=== PATIENT | male | born 1965 | race Caucasian/White ===

== ENCOUNTER 2023-03-30 10:31 | Emergency (ER) | payer MEDICARE, SELFPAY ==
[2023-03-30 10:35] VITALS: BP 166/113; PULSE 88; RESP 18; TEMP 36.6; O2SAT 95; BMI 24.4
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
[2023-03-30] MEDS: ADACEL DIPH,PERTUSS(ACELL),TET VAC/PF 0.5 ML ADULT SYRINGE IM (11:25)
[2023-03-30 11:30] VITALS: BP 136/66; PULSE 98; RESP 16; TEMP 36.8; O2SAT 99
== END 2023-03-30 11:31 | disposition home or self-care (01) ==
PROVIDERS: Emergency Provider Emergency Medicine Emergency Medical Services; PCP Internal Medicine
DX: S81.812A Laceration without foreign body, left lower leg, initial encounter (principal); Z23 Encounter for immunization; W45.8XXA Other foreign body or object entering through skin, initial encounter
CPT/HCPCS: 90471; 90715; 99284

== ENCOUNTER 2023-05-09 14:27 | Outpatient (OUT) | payer MEDICARE, SELFPAY | END 2023-05-09 14:28 | disposition home or self-care (01) | LOC: WC 14:27 | PROVIDERS: PCP Internal Medicine; Visit Provider Physician Assistant | DX: L97.828 Non-pressure chronic ulcer of other part of left lower leg with other specified severity (principal) | CPT/HCPCS: 11043; G0463 ==

== ENCOUNTER 2023-05-13 13:27 | Outpatient (OUT) | payer MEDICARE, SELFPAY ==
--- NOTE | 2023-05-13 13:35 | MR_ITS ---
The [address] [address] Patient Name: TOMMY DAUGHERTY MRN: [id number] date: 1965 Sex: M Assigned Patient Location: MRI Current Patient Location: Accession/Order Number: [id number] Exam Date: 05/13/2023 13:45 Report Date: 05/15/2023 17:54 At the request of: LINH POSEY Procedure: MR lower leg LT wo con EXAM: MR lower leg LT wo con HISTORY: Leg pain COMPARISON: None. TECHNIQUE: Axial, sagittal and coronal MRI sequences were performed FINDINGS: Soft tissue marker has been placed. Nondescript extrafascial superficial cutaneous soft tissue edema beginning within the mid aspect of the lower leg and extending distally. No soft tissue collection, mass, cyst, hematoma or loculation. No visualized thickening or edema of the fascia. The visualized muscles exhibit no discrete edema, hematoma, mass or cyst. The osseous structures exhibit no fracture, dislocation, subluxation or osseous lesion. MR/MR lower leg LT wo con IMPRESSION: Nondescript soft tissue edema. Electronically authenticated by: JORGE LÓPEZ Date: 05/15/2023 17:54
--- NOTE | 2023-05-13 13:38 | US_ITS ---
The [address] [address] Patient Name: TOMMY DAUGHERTY MRN: [id number] date: 1965 Sex: M Assigned Patient Location: MRI Current Patient Location: MRI Accession/Order Number: [id number] Exam Date: 05/13/2023 13:39 Report Date: 05/16/2023 06:23 At the request of: LINH POSEY Procedure: US venous doppler LE LT EXAMINATION: US venous doppler LE LT HISTORY: Left Lower Leg Abscess COMPARISON: No relevant comparison available. FINDINGS: REGION: Left lower extremity THROMBI: None. COMPRESSIBILITY: Normal compressibility. FLOW: Normal waveform and antegrade flow between 5 and 20 cm/s. OTHER: None. US/US venous doppler LE LT IMPRESSION: 1. No deep vein thrombus within the left lower extremity. Electronically authenticated by: KIRSTY CLINTON Date: 05/16/2023 06:23
[2023-05-13 15:01] LABS: Basophils Percent Auto 0.3 % (0.2-2.0); Eosinophils Percent Auto 0.6 % (0.9-7.0); Hematocrit 47.4 % (42.0-54.0); Hemoglobin 15.8 g/dL (14.0-18.0); Immature Granulocytes Abs Auto 0.01 10^3/uL (0.00-0.03); Immature Granulocytes Pct Auto 0.1 % (0.0-0.5); Lymphocytes Absolute Auto 1.4 10^3/uL (1.2-3.8); Lymphocytes Percent Auto 19.3 % (20.5-60.0); Mean Corpuscular HGB Conc 33.3 g/dL (29.9-35.2); Mean Corpuscular Hemoglobin 32.9 pg (25.9-34.0); Mean Corpuscular Volume 98.8 fL (80.0-94.0); Mean Platelet Volume 9.7 fL (9.5-13.5); Monocytes Absolute Auto 0.5 10^3/uL (0.3-0.8); Monocytes Percent Auto 6.4 % (1.7-12.0); Neutrophils Absolute Auto 5.1 10^3/uL (1.4-6.5); Neutrophils Percent Auto 73.3 % (43.0-75.0); Platelet Count 254 10^3/uL (150-450); Red Cell Distribution Width 13.8 % (11.0-15.0)
[2023-05-13 15:25] LABS: Erythrocyte Sedimentation Rate 34 mm/hr (<=20)
[2023-05-14 13:32] LABS: Anion Gap 16.5; BUN Creatinine Ratio 8.7; Carbon Dioxide 25.8 mmol/L (21.0-32.0); Chloride 98 mmol/L (98-107); Estimated GFR (African America >60 (>=60); Estimated GFR (Non-African Ame >60 (>=60); Glucose 75 mg/dL (74-106); Potassium 4.3 mmol/L (3.5-5.1); Sodium 136 mmol/L (136-145)
[2023-05-14 14:34] LABS: C Reactive Protein <0.2 mg/dL (<=1.0)
== END 2023-05-13 13:28 | disposition home or self-care (01) ==
LOC: MRI 13:28
PROVIDERS: PCP Internal Medicine; Visit Provider Physician Assistant
DX: L02.416 Cutaneous abscess of left lower limb (principal)
CPT/HCPCS: 36415; 73718; 80048; 85025; 85652; 86140; 93971

== ENCOUNTER 2023-05-24 11:31 | Outpatient (OUT) | payer MEDICARE, SELFPAY | END 2023-05-24 11:32 | disposition home or self-care (01) | LOC: WC 11:31 | PROVIDERS: PCP Internal Medicine; Visit Provider Podiatrist Foot & Ankle Surgery | DX: L97.828 Non-pressure chronic ulcer of other part of left lower leg with other specified severity (principal) | CPT/HCPCS: 11042 ==

== ENCOUNTER 2023-06-06 13:28 | Outpatient (OUT) | payer MEDICARE, SELFPAY | END 2023-06-06 13:29 | disposition home or self-care (01) | LOC: WC 13:28 | PROVIDERS: PCP Internal Medicine; Visit Provider Physician Assistant | DX: L97.828 Non-pressure chronic ulcer of other part of left lower leg with other specified severity (principal) | CPT/HCPCS: 11042 ==

== ENCOUNTER 2023-06-27 15:34 | Outpatient (OUT) | payer MEDICARE, SELFPAY | END 2023-06-27 15:35 | disposition home or self-care (01) | LOC: WC 15:34 | PROVIDERS: PCP Internal Medicine; Visit Provider Physician Assistant | DX: L97.828 Non-pressure chronic ulcer of other part of left lower leg with other specified severity (principal) | CPT/HCPCS: A6213; G0463 ==

== ENCOUNTER 2023-07-11 13:34 | Outpatient (OUT) | payer MEDICARE, SELFPAY ==
--- NOTE | 2023-07-11 14:48 | CA_ITS ---
The [facility] Test Date: 2023-07-11 Pat Name: TOMMY DAUGHERTY Department: Room: - Gender: Male Pool Coordinator: Elayne Mai : 1965 Requested By: [id number] Order Number: [id number] Reading MD: DAGOBERTO TERRY Interpretive Statements Monophasic doppler waveforms of the LLE. PVR waveforms with delayed upstroke, blunted amplitude and loss of dicrotic notch of the LLE. Right: - no signficant pressure gradient between cuffs - normal MELISSA - normal TBI Left: - signficant pressure gradient between the thigh and calf cuff - abnormal MELISSA - abnormal TBI Impression: - normal arterial evaluation of the right lower extremity without hemodynamic impairment of the right lower extremity at rest (right MELISSA 0.98) - significant left femoropopliteal arterial disease with moderate hemodynamic impairment of the left lower extremity at rest (left MELISSA 0.64) Electronically Signed On 07-11-2023 20:33:00 EDT by DAGOBERTO TERRY
== END 2023-07-11 13:35 | disposition home or self-care (01) ==
LOC: CARD 13:35
PROVIDERS: PCP Internal Medicine; Visit Provider Physician Assistant
DX: L97.229 Non-pressure chronic ulcer of left calf with unspecified severity (principal); R09.89 Other specified symptoms and signs involving the circulatory and respiratory systems
CPT/HCPCS: 93923

== ENCOUNTER 2023-07-12 14:03 | Outpatient (OUT) | payer MEDICARE, SELFPAY | END 2023-07-12 14:04 | disposition home or self-care (01) | LOC: WC 14:03 | PROVIDERS: PCP Internal Medicine; Visit Provider Podiatrist Foot & Ankle Surgery | DX: L97.828 Non-pressure chronic ulcer of other part of left lower leg with other specified severity (principal) | CPT/HCPCS: 11042 ==

== ENCOUNTER 2023-08-01 14:07 | Outpatient (OUT) | payer MEDICARE, SELFPAY | END 2023-08-01 14:08 | disposition home or self-care (01) | LOC: WC 14:07 | PROVIDERS: PCP Internal Medicine; Visit Provider Physician Assistant | DX: L97.828 Non-pressure chronic ulcer of other part of left lower leg with other specified severity (principal) | CPT/HCPCS: 11042; A6213 ==

== ENCOUNTER 2023-08-23 14:02 | Outpatient (OUT) | payer MEDICARE, SELFPAY | END 2023-08-23 14:03 | disposition home or self-care (01) | LOC: WC 14:02 | PROVIDERS: PCP Internal Medicine; Visit Provider Podiatrist Foot & Ankle Surgery | DX: L97.828 Non-pressure chronic ulcer of other part of left lower leg with other specified severity (principal) | CPT/HCPCS: 11042 ==

== ENCOUNTER 2023-09-13 14:02 | Outpatient (OUT) | payer MEDICARE, SELFPAY | END 2023-09-13 14:03 | disposition home or self-care (01) | LOC: WC 14:02 | PROVIDERS: PCP Internal Medicine; Visit Provider Podiatrist Foot & Ankle Surgery | DX: L97.828 Non-pressure chronic ulcer of other part of left lower leg with other specified severity (principal) | CPT/HCPCS: G0463 ==

== ENCOUNTER 2023-09-23 13:54 | Outpatient (OUT) | payer MEDICARE, SELFPAY ==
--- OUTSIDE RECORDS SUMMARY | 2023-09-23 13:57 | XMS_ITS | CCD ---
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 information from multiple sources, and as a consequence, information in this document may materially change the coding, format and clinical context of patient data. In addition, data may be omitted in some cases. CLINICAL DECISIONS SHOULD BE BASED ON THE PRIMARY CLINICAL RECORDS. [facility] [employer] provides no warranty or guarantee of the accuracy or completeness of information in this document.
--- NOTE | 2023-09-23 14:01 | US_ITS ---
[address] [id number] Patient Name: TOMMY DAUGHERTY MRN: [id number] date: 1965 Sex: M Assigned Patient Location: Current Patient Location: Accession/Order Number: [id number] Exam Date: 09/23/2023 14:06 Report Date: 09/24/2023 01:26 At the request of: FLORESITA HICKEY Procedure: US carotid duplex BI EXAMINATION: US carotid duplex BI HISTORY: Bilateral Artery Stenosis I65.23 COMPARISON: No relevant comparison available. TECHNIQUE: Duplex Doppler ultrasound analysis of carotid and vertebral arteries. . Bilateral carotid arterial duplex examination was performed using B-mode, color flow and spectral analysis. Carotid stenosis is reported according to validated velocity parameters, similar to NASCET criteria. FINDINGS: RIGHT CAROTID ARTERY: Mild atherosclerotic plaque without significant stenosis. RIGHT VERTEBRAL: Antegrade flow. Subclavian: PSV: 82.0 cm/s EDV: 9.0 cm/s CCA: Prox: PSV: 82.0 cm/s EDV: 18.1 cm/s Mid: PSV: 85.9 cm/s EDV: 19.4 cm/s Distal: PSV: 41.8 cm/s EDV: 11.3 cm/s BULB: PSV: 28.4 cm/s EDV: 9.8 cm/s ICA: Prox: PSV: 47.0 cm/s EDV: 16.5 cm/s Mid: PSV: 71.0 cm/s EDV: 27.0 cm/s Distal: PSV: 67.2 cm/s EDV: 27.0 cm/s ECA: PSV: 114.1 cm/s EDV: 19.5 cm/s VERTEBRAL: PSV: 67.2 cm/s EDV: 21.9 cm/s ICA/CCA ratio: PSV: 0.8 EDV: 1.4 LEFT CAROTID ARTERY: Mild atherosclerotic plaque without significant stenosis. LEFT VERTEBRAL: Antegrade flow. Subclavian: PSV: 106.5 cm/s EDV: 20.8 cm/s CCA: Prox: PSV: 98.3 cm/s EDV: 32.1 cm/s Mid: PSV: 85.4 cm/s EDV: 27.3 cm/s Distal: PSV: 43.5 cm/s EDV: 18.2 cm/s BULB: PSV: 45.3 cm/s EDV: 13.9 cm/s ICA: Prox: PSV: 87.1 cm/s EDV: 40.2 cm/s Mid: PSV: 101.6 cm/s EDV: 41.8 cm/s Distal: PSV: 112.9 cm/s EDV: 41.8 cm/s ECA: PSV: 106.4 cm/s EDV: 20.8 cm/s VERTEBRAL: PSV: 49.6 cm/s EDV: 16.5 cm/s ICA/CCA ratio: PSV: 1.3 EDV: 1.5 US/US carotid duplex BI IMPRESSION: 0-49% flow stenosis within the right left carotid arteries. Electronically authenticated by: KIRSTY CLINTON Date: 09/24/2023 01:26
== END 2023-09-23 13:55 | disposition home or self-care (01) ==
LOC: US 13:54
PROVIDERS: PCP Internal Medicine
DX: I65.23 Occlusion and stenosis of bilateral carotid arteries (principal)
CPT/HCPCS: 93880

== ENCOUNTER 2023-10-10 15:30 | Outpatient (OUT) | payer MEDICARE, SELFPAY ==
--- OUTSIDE RECORDS SUMMARY | 2023-10-10 15:31 | XMS_ITS | CCD ---
Author Name Unknown Address [address] [place] [address] Organization [facility] Care Team Providers Care Medical Assistant Name Role Phone Andre Zuniga Attending Unavailable [...] Consulting Unavailable FAWWAD, GONZALEZ H Consulting Unavailable No Pcp, No Pcp Primary Care Provider Unavailabl e Allergies Allergy Classification Reported Allergen(s) Allergy Type Date of Onset Reaction(s) Facility (1 source) Amoxicillin; Translations: [amoxicillin] Drug Allergy [facility] Repository (1 source) methylPREDNISolone Drug Allergy [facility] Repository Medications Current Medications Medication Drug Class(es) Dates Sig (Normalized) Sig (Original) [id number] 200 actuat albuterol 0.09 mg/actuat metered dose inhaler (1 source) beta2-Adrenergic Agonist take 2 puff(s) by inhalation every six hours as needed for wheezing albuterol (PROVENTIL HFA;VENTOLIN HFA) 90 mcg/actuation inhaler Inhale 2 puffs every 6 (six) hours as needed for wheezing. 0 Active ALPRAZolam 1 mg oral tablet (1 source) Benzodiazepine ALPRAZolam (XANA X) 1 mg tablet Take 1 tablet (1 mg total) by mouth in the morning and 1 tablet (1 mg total) at noon and 1 tablet (1 mg total) in the evening and 1 tablet (1 mg total) before bedtime. 0 Active baclofen 20 mg oral tablet (1 source) gamma-Aminobutyric Acid-ergic Agonist take 1 tablet by mouth three times daily baclofen (LIORESAL) 20 mg tablet Take 1 tablet (20 mg total) by mouth 3 (three) times a day. 0 Active diclofenac sodium 0.01 mg/mg topical gel (1 source) Nonsteroidal Anti-inflammatory Drug diclofenac sodium (VOLTAREN) 1 % gel Apply 2 g topically in the morning and 2 g at noon and 2 g in the evening and 2 g before bedtime. 0 Active levocetirizine dihydrochloride 5 mg oral tablet (1 source) Histamine-1 Receptor Antagonist take 1 tablet by mouth once daily in the evening levocetirizine (XYZAL) 5 mg tablet Take 1 tablet (5 mg total) by mouth every evening. 0 Active QUEtiapine 100 mg oral tablet (1 source) Atypical Antipsychotic take 1 tablet by mouth once daily QUEtiapine (SEROquel) 100 mg tablet Take 1 tablet (100 mg total) by mouth nightly. 0 Active Problems Active Problems Problem Classification Problem Date Documented Da te Episodic/Chronic Anxiety disorders (6 sources) Anxiety disorder, unspecified; Translations: [Generalized anxiety disorder] Onset: 03-02-2022 Chronic Attention-deficit, conduct, and disruptive behavior disorders (2 sources) Attention-deficit hyperactivity disorder, combined type; Translations: [Attention-deficit hyperactivity disorder. combined type] Onset: 04-29-2022 Chronic Chronic obstructive pulmonary disease and bronchiectasis (1 source) Chronic obstructive pulmonary disease, unspecified; Translations: [COPD UNSPECIFIED] Onset: 11-15-2022 Chronic Chronic ulcer of skin (1 source) Ischemic ulcer; Translations: [Non-pressure chronic ulcer of skin of other sites with fat layer exposed] Onset: 09-22-2023 09-22-2023 Chronic Osteoarthritis (1 source) Unilateral primary osteoarthritis, right hip; Translations: [UNI PRIM OSTEOARTHRITIS RT HIP] Onset: 11-15-2022 Chronic Other non-traumatic joint disorders (1 source) Pain in right hip; Translations: [PAIN IN RIGHT HIP] Onset: 11-15-2022 Episodic Peripheral and visceral atherosclerosis (1 source) Peripheral vascular disease, unspecified; Translations: [Peripheral vascular disease, unspecified] Onset: 09-22-2023 09-22-2023 Chronic Spondylosis; intervertebral disc disorders; other back [...] by: KIRSTY CLINTON Date: 2023-02-04 06:36 Normal [facility]-04-20 23 [facility] EXAMINATION: [facility] HISTORY: Neck pain , chronic which [...] KIRSTY CLINTON Date: 2023-02-03 15:09 Normal [facility] Family Medicine Office/Clini c Noteon 12-22-2022 [...] Alberta Sharma to record this visit. MAYUR health information specialist and provider reviewed before signing. MAYUR: [...] fexofenadine 18 (more content not included)... Normal [facility] Comment on above: Result Comment: Elec tronically Signed By: Andre Zuniga MD\.br\Date and Time Signed: 12/22/22 11:14 EDT\.br\Electronically Co-Signed By: Monse Green\.br\Date and Time Co-Signed: 12/21/22 19:48 EDT Ambulatory Visit Summaryon 0 12-21-2022 Ambulatory Visit Summary CHAPARRO DAUGHERTY Rola :1965 Visit Date:12/21/2022 Ambulatory Visit Instructions Your Diagnosis BMI 27.0-27.9,adult Over weight Your Care Team Attending Physician - Andre Zuniga MD Primary Care Physician - Andre [...] EDT With: Efrain GARIBAY, Andre Macedo Where: [facility] Normal [facility] XR CSPINE 2_3 VIEWSon 2022 XR CSPINE [...] by: JORGE COCHRAN Date: 2022-11-11 07:46 Normal [facility] XR LSPINE 2_3 VIEWSon 2022 XR LSPINE [...] JORGE COCHRAN Date: 2022-11-11 07:43 Normal [facility] HEMOGLOBINon 11-10-2022 Hemoglobin (Bld) [Mass/Vol] 16.0 g/dL Normal 14.0-18.0 [facility] Comment on above: Performed By: #### H GB #### [facility] [address] [place] [address] Dr. Rc Knutson CBC AUTO DIFFon 03-02-2022 BASO # 0.1 103/ul Normal 0.0-0.1 [facility] Comment on above: Performed By: #### C BC #### [facility] [address] [place] [address] Dr. Rc Knutson Basophils/100 WBC (Bld) 0.6 % Normal 0.2-2.0 [facility] Comment on above: Performed By: #### C BC #### [facility] [address] [place] [address] Dr. Rc Knutson EO # 0.1 103/ul Normal 0.0-0.7 [facility] Comment on above: Performed By: #### C BC #### [facility] [address] [place] [address] Dr. Rc Knutson Eosinophils/100 WBC (Bld) 0.9 % Normal 0.9-7.0 [facility] Comment on above: Performed By: #### C BC #### [facility] [address] [place] [address] Dr. Rc Knutson Erythrocyte distribution width (RBC) [Ratio] 13.3 % Normal 11.0-15.0 [facility] Comment on above: Performed By: #### C BC #### [facility] [address] [place] [address] Dr. Rc Knutson Hematocrit (Bld) [Volume fraction] 50.8 % Normal 42.0-54.0 [facility] Comment on above: Performed By: #### C BC #### [facility] [address] [place] [address] Dr. Rc Knutson Hemoglobin (Bld) [Mass/Vol] 16.5 g/dL Normal 14.0-18.0 [facility] Comment on above: Performed By: #### C BC #### [facility] [address] [place] [address] Dr. Rc Knutson IG # 0.03 10e3/ul Normal 0.00-0.03 [facility] Comment on above: Performed By: #### C BC #### [facility] [address] [place] [address] Dr. Rc Knutson IG % 0.3 % Normal 0.0-0.5 [facility] Comment on above: Performed By: #### C BC #### [facility] [address] [place] [address] Dr. Rc Knutson LYMPH # 1.6 103/ul Normal 1.2-3.8 [facility] Comment on above: Performed By: #### C BC #### [facility] [address] [address] [address] Rc Knutson Lymphocytes/100 WBC (Bld) 16.6 % Critically low 20.5-60.0 [facility] Comment on above: Performed By: #### C BC #### [facility] [address] [address] [address] Rc Knutson MANUAL DIFF REQ NO Normal [facility] Comment on above: Performed By: #### C BC #### [facility] [address] [place] [address] Dr. Rc Knutson MCH (RBC) [Entitic mass] 32.3 pg Normal 25.9-34.0 [facility] Comment on above: Performed By: #### C BC #### [facility] [address] [place] [address] Dr. Rc Knutson MCHC (RBC) [Mass/Vol] 32.5 g/dL Normal 29.9-35.2 [facility] Comment on above: Performed By: #### C BC #### [facility] [address] [place] [address] Dr. Rc Knutson MCV (RBC) [Entitic vol] 99.4 fL Critically high 80.0-94.0 [facility] Comment on above: Performed By: #### C BC #### [facility] [address] [place] [address] Dr. Rc Knutson MONO # 0.7 103/ul Normal 0.3-0.8 [facility] Comment on above: Performed By: #### C BC #### [facility] [address] [place] [address] Dr. Rc Knutson Monocytes/100 WBC (Bld) 6.9 % Normal 1.7-12.0 [facility] Comment on above: Performed By: #### C BC #### [facility] [address] [place] [address] Dr. Rc Knutson NEUT # 7.2 103/ul Critically high 1.4-6.5 [facility] Comment on above: Performed By: #### C BC #### [facility] [address] [address] [address] Rc Knutson Neutrophils/100 WBC (Bld) 74.7 % Normal 43.0-75.0 [facility] Comment on above: Performed By: #### C BC #### [facility] [address] [address] [address] Rc Knutson Platelet mean volume (Bld) [Entitic vol] 9.9 fL Normal 9.5-13.5 [facility] Comment on above: Performed By: #### C BC #### [facility] [address] [place] [address] Dr. Rc Knutson PLT 262 103/ul Normal 150-450 [facility] Comment on above: Performed By: #### C BC #### [facility] [address] [place] [address] Dr. Rc Knutson RBC 5.11 106/ul Normal 4.70-6.10 [facility] Comment on above: Performed By: #### C BC #### [facility] [address] [place] [address] Dr. Rc Knutson WBC 9.7 103/ul Normal 4.0-11.0 [facility] Comment on above: Performed By: #### C BC #### [facility] [address] [place] [address] Dr. Rc Knutson PROF 14(COMP METB)on 022 Albumin [Mass/Vol] 4.0 g/dL Normal 3.4-5.0 [facility] Comment on above: Performed By: #### C MP, TSH #### [facility] [address] [place] [address] Dr. Rc Knutson Albumin/Globulin [Mass ratio] 1.3 {ratio} Normal [facility] Comment on above: Performed By: #### C MP, TSH #### [facility] [address] [place] [address] Dr. Rc Knutson ALP [Catalytic activity/Vol] 101 U/L Normal 46-116 [facility] Comment on above: Performed By: #### C MP, TSH #### [facility] [address] [address] [address] Rc Knutson ALT [Catalytic activity/Vol] 33 U/L Normal 16-63 [facility] Comment on above: Performed By: #### C MP, TSH #### [facility] [address] [place] [address] Dr. Rc Knutson Anion gap [Moles/Vol] 10.4 mmol/L Normal [facility] Comment on above: Performed By: #### C MP, TSH #### [facility] [address] [address] [address] Rc Knutson AST [Catalytic activity/Vol] 22 U/L Normal 15-37 [facility] Comment on above: Performed By: #### C MP, TSH #### [facility] [address] [place] [address] Dr. Rc Knutson Bilirubin [Mass/Vol] 0.6 mg/dL Normal 0.2-1.0 [facility] Comment on above: Performed By: #### C MP, TSH #### [facility] [address] [place] [address] Dr. Rc Knutson Calcium [Mass/Vol] 8.8 mg/dL Normal 8.5-10.[address] [facility] Comment on above: Performed By: #### C MP, TSH #### [facility] [address] [place] [address] Dr. Rc Knutson Chloride [Moles/Vol] 105 mmol/L Normal 98-107 [facility] Comment on above: Performed By: #### C MP, TSH #### [facility] [address] [place] [address] Dr. Rc Knutson CO2 [Moles/Vol] 33.0 mmol/L Critically high 21.0-32.0 [facility] Comment on above: Performed By: #### C MP, TSH #### [facility] [address] [place] [address] Dr. Rc Knutson Creatinine [Mass/Vol] 0.96 mg/dL Normal 0.70-1.30 [facility] Comment on above: Performed By: #### C MP, TSH #### [facility] [address] [place] [address] Dr. Rc Knutson EGFR-AF HUNGARIAN >60 Normal >=60 [facility] Comment on above: Performed By: #### C MP, TSH #### [facility] [address] [place] [address] Dr. Rc Knutson EGFR-NON AF HUNGARIAN >60 Normal >=60 [facility] Comment on above: Performed By: #### C MP, TSH #### [facility] [address] [address] [address] Rc Knutson Globulin (S) [Mass/Vol] 3.2 g/dL Normal [facility] Comment on above: Performed By: #### C MP, TSH #### [facility] [address] [place] [address] Dr. Rc Knutson Glucose [Mass/Vol] 106 mg/dL Normal 74-[address] [facility] Comment on above: Performed By: #### C MP, TSH #### [facility] [address] [address] [address] Rc Knutson Potassium [Moles/Vol] 4.4 mmol/L Normal 3.5-5.1 [facility] Comment on above: Performed By: #### C MP, TSH #### [facility] [address] [place] [address] Dr. Rc Knutson Protein [Mass/Vol] 7.2 g/dL Normal 6.4-8.[address] [facility] Comment on above: Performed By: #### C MP, TSH #### [facility] [address] [place] [address] Dr. Rc Knutson Sodium [Moles/Vol] 144 mmol/L Normal 136-[address] [facility] Comment on above: Performed By: #### C MP, TSH #### [facility] [address] [place] [address] Dr. Rc Knutson Urea nitrogen [Mass/Vol] 13.0 mg/dL Normal 7.0-18.0 [facility] Comment on above: Performed By: #### C MP, TSH #### [facility] [address] [place] [address] Dr. Rc Knutson Urea nitrogen/Creatinin e [Mass ratio] 13.5 mg/mg Normal [facility] Comment on above: Performed By: #### C MP, TSH #### [facility] [address] [address] [address] Rc Knutson TSHon 03-02-2022 TSH 0.383 uIU/mL Normal 0.358-3.740 [facility] Comment on above: Performed By: #### C MP, TSH #### [facility] [address] [address] [address] Rc Knutson TSH RANGE SEE BELOW Normal [facility] Comment on above: Result Comment: <0.3 4 UIU/ml HYPERTHYROID 0.34-5.60 UIU/ml EUTHYROID >5.60 UIU/ml HYPOTHYROID Performed By: #### C MP, TSH #### [facility] [address] [address] [address] Rc Knutson Encounters Encounter Date Encounter Type Care Provider Facility Start: 10-04-2023 Telephone encounter Emy [facility] Start: 02-03-2023 End: 02-04-2023 ambulatory SHAIKH Patt CHOUDHURY Facility:[facility] Start: 12-21-2022 End: 12-22-2022 ambulatory Andre Zuniga Facility:[facility] Start: 11-10-2022 End: 11-11-2022 ambulatory SHAIKH Patt CHOUDHURY Facility:[facility] Start: 11-01-2022 ambulatory Andre Zuniga Facility:[facility] Start: 04-29-2022 End: 11-13-2022 ambulatory [facility] Start: 03-02-2022 End: 03-03-2022 ambulatory SHAIKH Patt CHOUDHURY Facility:[facility] Plan of Treatment Date Care Activity Detail Author Start: 09-08-2024 Adult BMI Screening Adult BMI Screen ing [facility] Start: 09-08-2024 Tobacco Screening Tobacco Screening [facility] Start: 10-20-2023 End: 10-20-2023 Patient encounter procedure 10/20/2023 10:10 AM EST Office Visit [facility] [address] [place], [place] [address], [place] [address] Yvan Johnson MD [address], [address] [place] [address] [facility] Start: 10-06-2023 Subsequent hospital visit by physician 10/06/2023 Hospital Encounter [facility] - Cardiac Cath [address] [place] [id number] Yvan Johnson MD [address], [facility] [address] [place] [address] Ischemic ulcer with fat layer exposed ([facility]); PAD (peripheral artery disease) ([facility]) [facility] Comment on above: Ischemic ulcer with fat layer exposed ([facility]); PAD (peripheral artery disease) ([facility]) Start: 05-27-2023 COVID-19 Vaccine ( season) COVID-19 Vaccine ( season) [facility] Start: 05-27-2023 Influenza vaccination Influenza Vacc ine [facility] Start: 2014 Administration of varicella zoster vaccine Zoster (Shingles) Vaccine (1 of 2) [facility] Start: 1983 DTaP,Tdap and Td Vac cines (1 - Tdap) DTaP,Tdap and Td Vaccines (1 - Tdap) [facility] Start: 1976 Depression Screening Depression Scre ening [facility] Start: 1964 Tobacco Counseling Tobacco Counselin g [facility] Payers Date Payer Category Payer Medicare AETNA MEDICARE A ETNA MEDICARE PLAN (PPO) [id number] 2020-Present [phone] [address] [place] [address] [id number] 2017 Medicaid MEDICAID [place] [facility] -[place] ONLY [id number] 2017-Present [phone] [address] [place] [address] [id number] 1965 Unknown [id number] 1965 Unknown [id number] 1965 Unknown [id number] 1965 Unknown [id number] 1960 Medicare [id number] Social History Date Type Detail Facility [facility]: [facility] History of tobacco use Cigarette Smoker P [facility] Start: 11-06-2020 End: 09-08-2023 Cigarettes smoked current (pack per day) - Reported 1.5 [facility] Start: 09-08-2023 Tobacco use and exposure Smokeless tobacco non-user [facility] Start: 09-08-2023 Alcohol intake Current drinke r of alcohol (finding) [facility] Start: 11-06-2020 End: 09-08-2023 Tobacco use panel [facility] Housing Instability Unknown [facility] Start: 10-13-2021 Alcohol Comment occ [facility] Start: 1965 Sex Assigned At Male P [facility] Start: 10-16-2021 Gender identity Identifies as male gender (finding) [facility] Start: 10-16-2021 Sexual orientation Heterosexual (moises moran) [facility] Note 10-04-2023 Telephone Encounter - Emy Shaffer - 10/04/2023 1:17 PM EST Note Date & Type Note Facility 10-04-2023 Miscellaneous Notes Formattin g of this note might be different from the original. Patient has cancelled his Angiogram x2-I called and spoke with Marilyn the Wound Care Nurse at Wound center in [place] to let her know. Patient will call me when he has a ride to reschedule. [facility] encounter Note 10-04-2023 Telephone Encounter - Emy Millerford - 10/04/2023 1:17 PM EST Note Date & Type Note Facility 10-04-2023 Telephone encount er Note Patient has cancelled his Angiogram x2-I called and spoke with Marilyn the Wound Care Nurse at Wound center in [place] to let her know. Patient will call me when he has a ride to reschedule. [facility] 11-11-2022 Note Date & Type [...] by: JORGE COCHRAN Date: 2022-11-11 07:48 [facility] Instructions Note Date & Type Note Facility Instructions Not on filedocumented in this en counter [facility] Summary Purpose Family History No Family History Records FoundNo Family History Records FoundNo Family History Records Found Advance Directives No Advanced Directives Records FoundNo Advanced Directives Records FoundNo Advanced Directives Records Found Additional Source Comments (unrecognized sect ion and content) No Status Records FoundNo Status Records FoundNo Status Records Found INFORMATION SOURCE (unrecogn ized section and content) DATE CREATED AUTHOR 11/14/2022 [facility] DATE CREATED AUTHOR AUTHOR'S ORGANIZ ATION 12/22/2022 [facility] DATE CREATED AUTHOR AUTHOR'S ORGANIZ ATION 02/07/2023 [facility] Care Teams (unrecognized sec tion and content) Medical Assistant Relationship Specialty Start Date End Date No Pcp, [place] [address] PCP - General Family Medicine 08/04/21 FOR RECORDS PERTAINING TO PATIENTS WHO ARE [...] BE BASED ON THE PRIMARY CLINICAL RECORDS. [facility] [employer] [facility]. provides no warranty or guarantee of the accuracy or completeness of information in this document.
== END 2023-10-10 15:31 | disposition home or self-care (01) ==
LOC: WC 15:30
PROVIDERS: PCP Internal Medicine; Visit Provider Physician Assistant
DX: L97.828 Non-pressure chronic ulcer of other part of left lower leg with other specified severity (principal)
CPT/HCPCS: A6213; G0463

== ENCOUNTER 2023-11-14 12:43 | Outpatient (OUT) | payer MEDICARE, SELFPAY ==
--- OUTSIDE RECORDS SUMMARY | 2023-11-14 13:02 | XMS_ITS | CCD ---
Author Name Unknown Address [address] [place] [address] Organization [facility] Care Team Providers Care Strategic Client Executive Name Role Phone Andre Zuniga Attending Unavailable [...] No Pcp Primary Care Provider Unavailabl e FAWWAD, GONZALEZ Attending Unavailable FLORESITA HICKEY Referring Unavailable NO PCP, NO PCP Primary Care Unavailable Shaikh Choudhury MD Primary Care Provider BECKI MCCOY Attending Unavailable NO PCP, NO PCP Primary Care Unavailable Allergies Allergy Classification Reported Allergen(s) Allergy Type Date of Onset Reaction(s) Facility (5 sources) Amoxicillin; Translations: [amoxicillin] Drug Allergy 10-11-19 Other (See Comments), Unknown [facility] Repository (1 source) methylPREDNISolone Drug Allergy [facility] Repository (4 sources) methylPREDNISolone; Translations: [METHYLPREDNISOLONE] Drug Allergy 09-29-19 [facility] Medications Current Medications Medication Drug Class(es) Dates Sig (Normalized) Sig (Original) acetaminophen 325 mg / oxyCODONE hydrochloride 5 mg oral tablet (3 sources) Opioid Agonist Start: 10-11-2023 End: 12-10-2023 take 1 tablet by mouth once oxyCODONE-acetamin ophen (Percocet) 5-325 MG tablet Indications: Chronic neck and back pain Take 1 tablet by mouth every 12 (twelve) hours if needed for severe pain 60 tablet 0 11/10/2023 12/10/2023 Active [id number] 200 actuat albuterol 0.09 mg/actuat metered dose inhaler (5 sources) beta2-Adrenergic Agonist Start: 10-21-2023 End: 01-19-2024 take 2 puff(s) by inhalation every six hours for wheezing albuterol HFA 90 mcg/act inhaler Indications: Chronic obstructive pulmonary disease with acute exacerbation (CMS/HCC) Inhale 2 puffs every 6 (six) hours if needed for shortness of breath or wheezing 18 g 1 10/21/2023 01/19/2024 Active take 2 puff(s) by in halation every six hours as needed for wheezing albuterol (PROVENTIL HFA;VENTOLIN HFA) 9 0 mcg/actuation inhaler Inhale 2 puffs every 6 (six) hours as needed for wheezing. 0 Active ALPRAZolam 1 mg oral tablet (5 sources) Benzodiazepine Start: 05-23-2023 ALPRAZolam (Xanax) 1 MG tablet Take 1 mg by mouth if needed for anxiety. 0 05/23/2023 Active baclofen 20 mg oral tablet (5 sources) gamma-Aminobutyric Acid-ergic Agonist take 1 tablet by mouth in the morning, then take 1 tablet by mouth in the evening, then take 1 tablet by mouth at bedtime baclofen (Lioresal) 20 MG tablet Take 20 mg by mouth in the morning and 20 mg in the evening and 20 mg before bedtime. 0 Active celecoxib 200 mg oral capsule (2 sources) Nonsteroidal Anti-inflammatory Drug take 1 capsule by mouth in the morning celecoxib (CeleBREX) 200 MG capsule Take 200 mg by mouth in the morning and 200 mg before bedtime. 0 Active diclofenac sodium 0.01 mg/mg topical gel (7 sources) Nonsteroidal Anti-inflammatory Drug Start: 08-22-2023 diclofenac sodium 1 % gel Indications: Chronic pain syndrome Apply topically 3 (three) times a day as needed for pain. 1 g 1 08/22/2023 Active diclofenac sodiu m (Voltaren Arthritis Pain) 1 % gel Apply 2 g topically in the morning and 2 g in the evening and 2 g before bedtime. 0 Active escitalopram 5 mg oral tablet (2 sources) Serotonin Reuptake Inhibitor Start: 10-11-2023 End: 01-09-2024 take 1 tablet by mouth in the morning escitalopram (Lexapro) 5 MG tablet Indications: MAINOR (generalized anxiety disorder) (CMS/HCC) Take 1 tablet (5 mg) by mouth in the morning. 30 tablet 2 10/11/2023 01/09/2024 Active fexofenadine hydrochloride 180 mg oral tablet (2 sources) Histamine-1 Receptor Antagonist take 1 tablet by mouth in the morning fexofenadine (Carleen) 180 MG tablet Take 180 mg by mouth in the morning. 0 Active levocetirizine dihydrochloride 5 mg oral tablet (3 sources) Histamine-1 Receptor Antagonist take 1 tablet by mouth once daily in the evening levocetirizine (XYZAL) 5 mg tablet Take 1 tablet (5 mg total) by mouth every evening. 0 Active nicotine 4 mg oral lozenge (4 sources) Cholinergic Nicotinic Agonist Start: 10-11-2023 End: 11-10-2023 nicotine (Nicotine Step 1) 21 MG/24HR patch Indications: Tobacco dependency Place 1 patch over 24 hours on the skin 1 (one) time each day at the same time 30 patch 0 10/11/2023 11/10/2023 Discontinued (Therapy completed) Start: 10-11-2023 End: 11-10-2023 nicotine polacrilex (Commit) 4 MG lozenge Indications: Tobacco dependency Dissolve 1 lozenge (4 mg) in the mouth every 2 (two) hours if needed for smoking cessation 30 lozenge 1 10/11/2023 11/10/2023 Discontinued (Therapy completed) pregabalin 100 mg oral capsule (3 sources) Start: 10-24-2023 End: 10-24-2023 take 1 capsule by mouth three times daily pregabalin (Lyrica) 100 MG capsule Indications: Cervicalgia TAKE 1 CAPSULE BY MOUTH THREE TIMES DAILY 270 capsule 0 10/24/2023 Active QUEtiapine 100 mg oral tablet (5 sources) Atypical Antipsychotic Start: 10-20-2023 take 1 tablet by mouth at bedtime QUEtiapine (SEROquel) 100 MG tablet Indications: Bipolar disorder, unspecified (CMS/HCC) TAKE 1 TABLET BY MOUTH AT BEDTIME 90 tablet 1 10/20/2023 Active Problems Active Problems Problem Classification Problem Date Documented Da te Episodic/Chronic Anxiety disorders (8 sources) Anxiety disorder, unspecified; Translations: [Generalized anxiety disorder] Onset: 03-02-2022 Chronic Attention-deficit, conduct, and disruptive behavior disorders (2 sources) Attention-deficit hyperactivity disorder, combined type; Translations: [Attention-deficit hyperactivity disorder. combined type] Onset: 04-29-2022 Chronic Chronic obstructive pulmonary disease and bronchiectasis (3 sources) Chronic obstructive pulmonary disease, unspecified; Translations: [Mild chronic obstructive pulmonary disease] Onset: 11-15-2022 10-11-2023 Chronic Chronic ulcer of skin (6 sources) Ischemic ulcer; Translations: [Non-pressure chronic ulcer of skin of other sites with fat layer exposed] Onset: 09-22-2023 09-22-2023 Chronic Essential hypertension (2 sources) Hypertensive disorder; Translations: [Essential (primary) hypertension] Onset: 10-11-2023 10-11-2023 Chronic Gangrene (3 sources) Critical lower limb ischemia ; Translations: [Atherosclerosis of wrangell arteries of extremities with gangrene, left leg] Onset: 11-03-2023 11-03-2023 Chronic Osteoarthritis (1 source) Unilateral primary osteoarthritis, right hip; Translations: [UNI PRIM OSTEOARTHRITIS RT HIP] Onset: 11-15-2022 Chronic Other circulatory disease (1 source) Other specified symptoms and signs involving the circulatory and respiratory systems; Translations: [Other specified symptoms and signs involving the circulatory and respiratory systems] Onset: 10-25-2023 Episodic Other diseases of veins and lymphatics (1 source) Venous insufficiency (chronic) (peripheral); Translations: [Venous insufficiency (chronic) (peripheral)] Onset: 10-25-2023 Episodic Other non-traumatic joint disorders (1 source) Pain in right hip; Translations: [PAIN IN RIGHT HIP] Onset: 11-15-2022 Episodic Peripheral and visceral atherosclerosis (4 sources) Peripheral vascular disease, unspecified; Translations: [Peripheral vascular disease, unspecified] Onset: 09-22-2023 09-22-2023 Chronic Residual codes; unclassified (1 source) Other general symptoms and signs; Translations: [Other general symptoms and signs] Onset: 10-25-2023 Episodic Spondylosis; intervertebral disc disorders; other back problems (3 sources) Other cervical disc degeneration, unspecified cervical region; Translations: [Other intervertebral disc degeneration, lumbosacral region] Onset: 11-15-2022 Chronic Spondylosis; intervertebral disc disorders; other back problems (11 sources) Cervicalgia; Translations: [Dorsalgia, unspecified] Onset: 02-03-2023 Episodic Substance-related disorders (5 sources) Cocaine abuse, uncomplicated; Translations: [Nicotine dependence, cigarettes, with unspecified nicotine-induced disorders] Onset: 04-29-2022 Chronic Unclassified (1 source) Discuss Angio Onset: 11-03-2023 Varicose veins of lower extremity (3 sources) Ankle ulcer; Translations: [Varicose veins of left lower extremity with ulcer of ankle] Onset: 11-03-2023 11-03-2023 Episodic Past or Other Problems Problem Classification Problem [...] by: KIRSTY CLINTON Date: 2023-02-04 06:36 Normal [facility] CONon 02-04-20 23 [facility] EXAMINATION: [facility] CON HISTORY: Neck pain , chronic which [...] KIRSTY CLINTON Date: 2023-02-03 15:09 Normal [facility] Family Medicine Office/Clini c Noteon 12-22-2022 Family [...] Alberta Sharma to record this visit. MAYUR document design specialist and provider reviewed before signing. MAYUR: [...] fexofenadine 18 (more content not included)... Normal [facility] Comment on above: Result Comment: Elec tronically Signed By: Andre Zuniga MD\.br\Date and Time Signed: 12/22/22 11:14 EDT\.br\Electronically Co-Signed By: Monse Green\.br\Date and Time Co-Signed: 12/21/22 19:48 EDT Ambulatory Visit Summaryon 0 12-21-2022 Ambulatory Visit Summary CHAPARRO DAUGHERTY :1965 Visit Date:12/21/2022 Ambulatory Visit Instructions Your [...] EDT With: Efrain GARIBAY, Andre Macedo Where: [facility] Normal [facility] XR CSPINE 2_3 VIEWSon 2022 XR [...] by: JORGE COCHRAN Date: 2022-11-11 07:46 Normal [facility] XR LSPINE 2_3 VIEWSon 2022 [...] JORGE COCHRAN Date: 2022-11-11 07:43 Normal [facility] HEMOGLOBINon 11-10-2022 Hemoglobin (Bld) [Mass/Vol] 16.0 g/dL Normal 14.0-18.0 [facility] Comment on above: Performed By: #### H GB #### [facility] [address] [place] [address] Dr. Rc Knutson CBC AUTO DIFFon 03-02-2022 BASO # 0.1 103/ul Normal 0.0-0.1 [facility] Comment on above: Performed By: #### C BC #### [facility] [address] [place] [address] Dr. Rc Knutson Basophils/100 WBC (Bld) 0.6 % Normal 0.2-2.0 [facility] Comment on above: Performed By: #### C BC #### [facility] [address] [place] [address] Dr. Rc Knutson EO # 0.1 103/ul Normal 0.0-0.7 [facility] Comment on above: Performed By: #### C BC #### [facility] [address] [place] [address] Dr. Rc Knutson Eosinophils/100 WBC (Bld) 0.9 % Normal 0.9-7.0 [facility] Comment on above: Performed By: #### C BC #### [facility] [address] [place] [address] Dr. Rc Knutson Erythrocyte distribution width (RBC) [Ratio] 13.3 % Normal 11.0-15.0 [facility] Comment on above: Performed By: #### C BC #### [facility] [address] [place] [address] Dr. Rc Knutson Hematocrit (Bld) [Volume fraction] 50.8 % Normal 42.0-54.0 [facility] Comment on above: Performed By: #### C BC #### [facility] [address] [place] [address] Dr. Rc Knutson Hemoglobin (Bld) [Mass/Vol] 16.5 g/dL Normal 14.0-18.0 [facility] Comment on above: Performed By: #### C BC #### [facility] [address] [place] [address] Dr. Rc Knutson IG # 0.03 10e3/ul Normal 0.00-0.03 [facility] Comment on above: Performed By: #### C BC #### [facility] [address] [place] [address] Dr. cR Knutson IG % 0.3 % Normal 0.0-0.5 [facility] Comment on above: Performed By: #### C BC #### [facility] [address] [address] [address] Rc Knutson LYMPH # 1.6 103/ul Normal 1.2-3.8 [facility] Comment on above: Performed By: #### C BC #### [facility] [address] [address] [address] Rc Knutson Lymphocytes/100 WBC (Bld) 16.6 % Critically low 20.5-60.0 [facility] Comment on above: Performed By: #### C BC #### [facility] [address] [place] [address] Dr. Rc Knutson MANUAL DIFF REQ NO Normal [facility] Comment on above: Performed By: #### C BC #### [facility] [address] [place] [address] Dr. Rc Knutson MCH (RBC) [Entitic mass] 32.3 pg Normal 25.9-34.0 [facility] Comment on above: Performed By: #### C BC #### [facility] [address] [place] [address] Dr. Rc Knutson MCHC (RBC) [Mass/Vol] 32.5 g/dL Normal 29.9-35.2 [facility] Comment on above: Performed By: #### C BC #### [facility] [address] [place] [address] Dr. Rc Knutson MCV (RBC) [Entitic vol] 99.4 fL Critically high 80.0-94.0 [facility] Comment on above: Performed By: #### C BC #### [facility] [address] [place] [address] Dr. Rc Knutson MONO # 0.7 103/ul Normal 0.3-0.8 [facility] Comment on above: Performed By: #### C BC #### [facility] [address] [place] [address] Dr. Rc Knutson Monocytes/100 WBC (Bld) 6.9 % Normal 1.7-12.0 [facility] Comment on above: Performed By: #### C BC #### [facility] [address] [address] [address] Rc Knutson NEUT # 7.2 103/ul Critically high 1.4-6.[address] [facility] Comment on above: Performed By: #### C BC #### [facility] [address] [address] [address] Rc Knutson Neutrophils/100 WBC (Bld) 74.7 % Normal 43.0-75.0 [facility] Comment on above: Performed By: #### C BC #### [facility] [address] [address] [address] Rc Knutson Platelet mean volume (Bld) [Entitic vol] 9.9 fL Normal 9.5-13.5 [facility] Comment on above: Performed By: #### C BC #### [facility] [address] [place] [address] Dr. Rc Knutson PLT 262 103/ul Normal 150-450 [facility] Comment on above: Performed By: #### C BC #### [facility] [address] [place] [address] Dr. Rc Knutson RBC 5.11 106/ul Normal 4.70-6.10 [facility] Comment on above: Performed By: #### C BC #### [facility] [address] [address] [address] Rc Knutson WBC 9.7 103/ul Normal 4.0-11.0 [facility] Comment on above: Performed By: #### C BC #### [facility] [address] [address] [address] Rc Knutson PROF 14(COMP METB)on 022 Albumin [Mass/Vol] 4.0 g/dL Normal 3.4-5.0 [facility] Comment on above: Performed By: #### C MP, TSH #### [facility] [address] [place] [address] Dr. Rc Knutson Albumin/Globulin [Mass ratio] 1.3 {ratio} Normal [facility] Comment on above: Performed By: #### C MP, TSH #### [facility] [address] [address] [address] Rc Knutson ALP [Catalytic activity/Vol] 101 U/L Normal 46-116 [facility] Comment on above: Performed By: #### C MP, TSH #### [facility] [address] [address] [address] Rc Knutson ALT [Catalytic activity/Vol] 33 U/L Normal 16-63 [facility] Comment on above: Performed By: #### C MP, TSH #### [facility] [address] [address] [address] Rc Knutson Anion gap [Moles/Vol] 10.4 mmol/L Normal [facility] Comment on above: Performed By: #### C MP, TSH #### [facility] [address] [place] [address] Dr. Rc Knutson AST [Catalytic activity/Vol] 22 U/L Normal 15-37 [facility] Comment on above: Performed By: #### C MP, TSH #### [facility] [address] [place] [address] Dr. Rc Knutson Bilirubin [Mass/Vol] 0.6 mg/dL Normal 0.2-1.0 [facility] Comment on above: Performed By: #### C MP, TSH #### [facility] [address] [place] [address] Dr. Rc Knutson Calcium [Mass/Vol] 8.8 mg/dL Normal 8.5-10.1 [facility] Comment on above: Performed By: #### C MP, TSH #### [facility] [address] [place] [address] Dr. Rc Knutson Chloride [Moles/Vol] 105 mmol/L Normal 98-107 [facility] Comment on above: Performed By: #### C MP, TSH #### [facility] [address] [address] [address] Rc Knutson CO2 [Moles/Vol] 33.0 mmol/L Critically high 21.0-32.0 [facility] Comment on above: Performed By: #### C MP, TSH #### [facility] [address] [place] [address] Dr. Rc Knutson Creatinine [Mass/Vol] 0.96 mg/dL Normal 0.70-1.30 [facility] Comment on above: Performed By: #### C MP, TSH #### [facility] [address] [place] [address] Dr. Rc Knutson EGFR-AF ENGLISH >60 Normal >=60 [facility] Comment on above: Performed By: #### C MP, TSH #### [facility] [address] [place] [address] Dr. Rc Knutson EGFR-NON AF ENGLISH >60 Normal >=60 [facility] Comment on above: Performed By: #### C MP, TSH #### [facility] [address] [place] [address] Dr. Rc Knutson Globulin (S) [Mass/Vol] 3.2 g/dL Normal [facility] Comment on above: Performed By: #### C MP, TSH #### [facility] [address] [place] [address] Dr. Rc Knutson Glucose [Mass/Vol] 106 mg/dL Normal 74-106 [facility] Comment on above: Performed By: #### C MP, TSH #### [facility] [address] [place] [address] Dr. Rc Knutson Potassium [Moles/Vol] 4.4 mmol/L Normal 3.5-5.1 [facility] Comment on above: Performed By: #### C MP, TSH #### [facility] [address] [place] [address] Dr. Rc Knutson Protein [Mass/Vol] 7.2 g/dL Normal 6.4-8.2 [facility] Comment on above: Performed By: #### C MP, TSH #### [facility] [address] [place] [address] Dr. Rc Knutson Sodium [Moles/Vol] 144 mmol/L Normal 136-145 [facility] Comment on above: Performed By: #### C MP, TSH #### [facility] [address] [place] [address] Dr. Rc Knutson Urea nitrogen [Mass/Vol] 13.0 mg/dL Normal 7.0-18.0 [facility] Comment on above: Performed By: #### C MP, TSH #### [facility] [address] [address] [address] Rc Knutson Urea nitrogen/Creatinin e [Mass ratio] 13.5 mg/mg Normal [facility] Comment on above: Performed By: #### C MP, TSH #### [facility] [address] [address] [address] Rc Knutson TSHon 03-02-2022 TSH 0.383 uIU/mL Normal 0.358-3.740 [facility] Comment on above: Performed By: #### C MP, TSH #### [facility] [address] [address] [address] Rc Knutson TSH RANGE SEE BELOW Normal [facility] Comment on above: Result Comment: <0.3 4 UIU/ml HYPERTHYROID 0.34-5.60 UIU/ml EUTHYROID >5.60 UIU/ml HYPOTHYROID Performed By: #### C MP, TSH #### [facility] [address] [address] [address] Rc Knutson Vital Signs Date Time Vital Sign Value Performing Clinician Willi lity 11-03-2023 12:06-0500 Diastolic blood pressure 80 mm[Hg] Becki Mccoy MD Work Phone: [facility] 11-03-2023 12:06-0500 Heart rate 51 /min Becki Mccoy MD Work Phone: [facility] 11-03-2023 12:06-0500 Systolic blood pressure 129 mm[Hg] Becki Mccoy MD Work Phone: [facility] 11-03-2023 12:05-0500 Body height 177.8 cm Becki Mccoy MD Work Phone: [facility] 11-03-2023 12:05-0500 Body mass index (BMI) [Ratio] 23.19 kg/m2 Becki Mccoy MD Work Phone: [facility] 11-03-2023 12:05-0500 Body weight 73.3 kg Becki Mccoy MD Work Phone: [facility] Encounters Encounter Date Encounter Type Care Provider Facility Start: 11-10-2023 Orders Only Shaikh Macey GARIBAY Work Phone: [facility] Comment on above: Chronic neck and ryanne k pain Start: 11-03-2023 End: 11-03-2023 ambulatory [facility] EL[facility] Start: 11-03-2023 End: 11-03-2023 Office outpatient visit 25 minutes Becki Mccoy MD Work Phone: [facility] Comment on above: Critical limb ischem ia of left lower extremity with gangrene ([facility] (Primary Dx); Venous ulcer of ankle, left ([facility] Start: 10-25-2023 End: 10-26-2023 ambulatory [facility] Start: 10-24-2023 Refill Shaikh Macey GARIBAY Work Phone: [facility] Comment on above: Cervicalgia Start: 10-13-2023 Telephone encounter Carina PADILLA [facility] Start: 10-11-2023 End: 10-11-2023 ambulatory GONZALEZ FAWWAD Not Available Start: 10-04-2023 Telephone encounter Emy rodas [facility] Start: 02-03-2023 End: 02-04-2023 ambulatory GONZALEZ H FAWWAD Facility:[facility] Start: 12-21-2022 End: 12-22-2022 ambulatory Andre Zuniga Facility:[facility] Start: 11-10-2022 End: 11-11-2022 ambulatory GONZALEZ H FAWWAD Facility:[facility] Start: 11-01-2022 ambulatory Andre Zuniga Facility:[facility] Start: 04-29-2022 End: 11-13-2022 ambulatory [place] Start: 03-02-2022 End: 03-03-2022 ambulatory GONZALEZ H FAWWAD Facility:[facility] Plan of Treatment Date Care Activity Detail Author Start: 09-08-2024 Adult BMI Screening Adult BMI Screen ing [facility] Start: 09-08-2024 Tobacco Screening Tobacco Screening [facility] Start: 06-28-2024 Medicare Annual Well ness (AWV) Medicare Annual Wellness (AWV) [facility] Start: 11-14-2023 End: 11-14-2023 Patient encounter procedure 11/14/2023 3:00 PM EST Office Visit [facility] [address] [place] [address] Shaikh Choudhury MD [address] [place] [address] [facility] Start: 10-20-2023 End: 10-20-2023 Patient encounter procedure 10/20/2023 10:10 AM EST Office Visit [facility] [address] [place] [address] Floresita Hickey MD [address], [address] [address] [facility] Start: 10-06-2023 Subsequent hospital visit by physician 10/06/2023 Hospital Encounter [facility] [address] [place] [id number] Floresita Hickey MD [address], [address] [address] Ischemic ulcer with fat layer exposed ([facility] [facility]); PAD (peripheral artery disease) [place] [facility] Comment on above: Ischemic ulcer with fat layer exposed ([facility]); PAD (peripheral artery disease) ([facility]) Start: 05-27-2023 COVID-19 Vaccine () COVID-19 Vaccine () [facility] Start: 05-27-2023 Influenza vaccination [facility] Start: 2014 Administration of varicella zoster vaccine Zoster (Shingles) Vaccine (1 of 2) [facility] Start: 1983 DTaP,Tdap and Td Vac cines (1 - Tdap) DTaP,Tdap and Td Vaccines (1 - Tdap) [facility] Start: 1976 Depression Screening Depression Scre ening [facility] Start: 1964 Screening for malign ant neoplasm of colon [facility] Start: 1964 Tobacco Counseling Tobacco Counselin g [facility] Payers Date Payer Category Payer Medicare [id number] 2017 Medicaid [place]ICAID [place] ONLY [id number] 2017-Present [phone] [address] [place] [address] [id number] 2017 Unknown [id number] 1965 Unknown [id number] 1964 Unknown [id number] 1964 Unknown [id number] 1964 Unknown [id number] 1964 Unknown [id number] 1964 Unknown [id number] 1964 Unknown [id number] 1959 Medicare [id number] Social History Date Type Detail Facility Start: 09-08-2023 Tobacco smoking status GAIS Heavy tobacco smoker [facility] History of tobacco use Cigarette Smoker P [facility] Start: 09-08-2023 End: 10-11-2023 Cigarettes smoked current (pack per day) - Reported 1.5 [facility] Start: 09-08-2023 End: 10-11-2023 Tobacco use and exposure Smokeless tobacco non-user [facility] Start: 09-08-2023 End: 10-11-2023 Alcohol intake Current drinker of alcohol (finding) [facility] Start: 09-08-2023 End: 10-11-2023 Tobacco use panel [facility] Housing Instability Unknown [facility] Start: 10-13-2021 Alcohol Comment occ [facility] Start: 1965 Sex Assigned At Male [facility] Start: 10-16-2021 Gender identity Identifies as male gender (finding) [facility] Start: 10-16-2021 Sexual orientation Heterosexual (finding) [facility] Start: 10-11-2023 Tobacco smoking status NHIS Smokes tobacco daily [facility] Start: 10-11-2023 Alcohol Comment OCCASSIONAL [facility] Start: 1965 Sex Assigned At Not on file [facility] Clinical Notes 11-11-2022 to 11-03-2023 Becki Mccoy MD - 11/03/2023 11:30 AM ESTTelephone Encounter - Shaikh Macey MD - 10/24/2023 12:11 PM ESTTelephone Encounter - Shaikh Macey MD - 10/24/2023 12:11 PM EST Note Date & Type Note Facility 11-03-2023 History of Presen t illness Narrative Images from the original note were not included. [facility] [address] [facility] [id number] Subjective: Patient ID: Chaparro Daugherty is a 58 y.o. male. Chief Complaint Chief Complaint Patient presents with Discuss Angio History of Present Illness: 58 M with LLE venous ulcer and critical limb threatening ischemia. 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 He has venous ulcer and following up with wound clinic. He continues to smoke. Patient Active Problem List Diagnosis Ischemic ulcer with fat layer exposed ([facility]) PAD (peripheral artery disease) ([facility]) Venous ulcer of ankle, left ([facility]) Critical limb ischemia of left lower extremity with gangrene ([facility]) Current Outpatient Medications: albuterol (PROVENTIL HFA;VENTOLIN HFA) 90 mcg/actuation inhaler, Inhale 2 puffs every 6 (six) hours as needed for wheezing., Disp: , Rfl: ALPRAZolam (XANAX) 1 mg tablet, Take 1 tablet (1 mg total) by mouth in the morning and 1 tablet (1 mg total) at noon and 1 tablet (1 mg total) in the evening and 1 tablet (1 mg total) before bedtime., Disp: , Rfl: baclofen (LIORESAL) 20 mg tablet, Take 1 tablet (20 mg total) by mouth 3 (three) times a day., Disp: , Rfl: diclofenac sodium (VOLTAREN) 1 % gel, Apply 2 g topically in the morning and 2 g at noon and 2 g in the evening and 2 g before bedtime., Disp: , Rfl: QUEtiapine (SEROquel) 100 mg tablet, Take 1 tablet (100 mg total) by mouth nightly., Disp: , Rfl: levocetirizine (XYZAL) 5 mg tablet, Take 1 tablet (5 mg total) by mouth every evening. (Patient not taking: Reported on 11/03/2023), Disp: , Rfl: The following portions of the patient's history were reviewed and updated as appropriate: allergies, current medications, past family history, past medical history, past social history, past surgical history and problem list. Review of Systems: Review of Systems All other systems reviewed and are negative. Objective: Vitals BP 129/80 (BP Site: Right Arm, BP Postition: Sitting, BP CUFF SIZE: L (13-17 inches)) Pulse 51 Ht 177.8 cm (5' 10 ) Wt 73.3 kg (161 lb 9.6 oz) BMI 23.19 kg/m Physical Exam Physical Exam Constitutional: Appearance: Normal appearance. HENT: Head: Normocephalic and atraumatic. Eyes: Extraocular Movements: Extraocular movements intact. Pupils: Pupils are equal, round, and reactive to light. Cardiovascular: Rate and Rhythm: Normal rate and regular rhythm. Pulmonary: Effort: Pulmonary effort is normal. Breath sounds: Normal breath sounds. Abdominal: General: Abdomen is flat. Palpations: Abdomen is soft. Musculoskeletal: General: Normal range of motion. Cervical back: Normal range of motion and neck supple. Skin: General: Skin is warm and dry. Neurological: General: No focal deficit present. Mental Status: He is alert and oriented to person, place, and time. Studies Reviewed MELISSA/PVR Carotid US Assesment: Chaparro was seen today for discuss angio. Diagnoses and all orders for this visit: Critical limb ischemia of left lower extremity with gangrene ([facility]) Venous ulcer of ankle, left ([facility]) Plan Plan: LLE angio and intervention Venous reflux US Wound care Becki Mccoy MD documented in this encounter [facility] 10-24-2023 Telephone encount er Note Approving, but needs appt for additional refills. [facility] 10-24-2023 Miscellaneous Notes Formattin g of this note might be different from the original. Approving, but needs appt for additional refills. documented in this encounter [facility] 10-13-2023 Miscellaneous Notes Formattin g of this note might be different from the original. Left message regarding if testing was completed and what location. Patient has a follow up on 10/20/2023 in [place]. documented in this encounter [facility] 10-13-2023 Telephone encount er Note Left message regarding if testing was completed and what location. Patient has a follow up on 10/20/2023 in [place]. [facility] 10-04-2023 Miscellaneous Notes Formattin g of this note might be different from the original. Patient has cancelled his Angiogram x2-I called and spoke with Marilyn the Wound Care Nurse at Wound center in [place] to let her know. Patient will call me when he has a ride to reschedule. documented in this encounter [facility] 10-04-2023 Telephone encount er Note Patient has cancelled his Angiogram x2-I called and spoke with Marilyn the Wound Care Nurse at Wound center in [place] to let her know. Patient will call me when he has a ride to reschedule. [facility] 11-11-2022 Note PROCEDURE: XR HIP RT 2 [...] by: JORGE COCHRAN Date: 2022-11-11 07:48 [facility] Evaluation note Diagnosis Critical limb ischemia of left lower extremity with gangrene ([facility] Primary Venous ulcer of ankle, left ([facility]) [facility] Diagnosis Cervicalgia [facility] Diagnosis Chronic neck and back pain documented in this encounter [facility]InstructionsNot on filedocumented in this encounterProMediGalion Hospital SystemInstructionsNot on filedocumented in this encounterProFirelands [facility] Summary Purpose Family History No Family [...] Records FoundNo Status Records FoundNo Status Records FoundNo Status Records FoundNo Status Records FoundNo Status Records Found INFORMATION SOURCE (unrecogn ized section and content) DATE CREATED AUTHOR 11/14/2022 [place] DATE CREATED AUTHOR AUTHOR'S ORGANIZ ATION 12/22/2022 [facility] DATE CREATED AUTHOR AUTHOR'S ORGANIZ ATION 02/07/2023 [facility] [place] [facility] DATE CREATED AUTHOR AUTHOR'S ORGANIZ ATION 10/12/2023 [facility] EPIC DATE CREATED AUTHOR AUTHOR'S ORGANIZ ATION 10/30/2023 [facility] DATE CREATED AUTHOR AUTHOR'S ORGANIZ ATION 11/07/2023 [facility] Care Teams (unrecognized sec tion and content) Strategic Client Executive Relationship Specialty Start Date End Date No Pcp, [place] [address] PCP - General Family Medicine 08/04/21 Strategic Client Executive Relationship Specialty Start Date End Date No Pcp, [place] [address] PCP - General Family Medicine 08/04/21 Strategic Client Executive Relationship Specialty Start Date End Date No Pcp, [place] [address] PCP - General Family Medicine 08/04/21 Strategic Client Executive Relationship Specialty Start Date End Date Shaikh Choudhury MD PCP - General Internal Medicine 05/09/23 Strategic Client Executive Relationship Specialty Start Date End Date Shaikh Choudhury MD PCP - General Internal Medicine 05/09/23 Reason for Visit (unrecogniz ed section and content) Reason Comments Discuss Angio Reason Comments Med Refill PT LEFT VM ASKING FO R ALL OF HIS RXS BE 90DAY SUPPLIES ITS CHEAPER FOR HIM THAT WAY. PER [facility], PLEASE CHANGE QTY ON THE ALBUTEROL INHALER TO #3 IF YOU WANT HIM TO BE ABLE TO GET A 90DAY SUPPLY OF THE INHALER WELL. -SCR FOR RECORDS PERTAINING TO PATIENTS WHO ARE [...] BE BASED ON THE PRIMARY CLINICAL RECORDS. [employer] [facility]. provides no warranty or guarantee of the accuracy or completeness of information in this document.
== END 2023-11-14 12:44 | disposition home or self-care (01) ==
LOC: WC 12:43
PROVIDERS: PCP Internal Medicine; Visit Provider Physician Assistant
DX: L97.828 Non-pressure chronic ulcer of other part of left lower leg with other specified severity (principal)
CPT/HCPCS: G0463

== ENCOUNTER 2024-01-18 17:25 | Outpatient (OUT) | payer MEDICARE, SELFPAY ==
--- NOTE | 2024-01-18 | US_ITS ---
[place] [id number] Patient Name: TOMMY DAUGHERTY MRN: [id number] date: 1965 Sex: M Assigned Patient Location: Current Patient Location: Accession/Order Number: [id number] Exam Date: 01/18/2024 18:00 Report Date: 01/20/2024 05:13 At the request of: SHAIKH ROQUE Procedure: US arterial duplex LE RT EXAMINATION: US arterial duplex LE RT HISTORY: Assess for pseudoaneurysm or hematoma , peripheral artery disease, hypertension COMPARISON: No relevant comparison available. TECHNIQUE: Color duplex Doppler ultrasound evaluation analysis was performed in the usual manner. FINDINGS: Normal triphasic waveform throughout the right lower extremity with mild scattered atherosclerotic plaque. External Iliac PSV: 87.0 cm/s External Iliac EDV: 0.0 cm/s Common Femoral PSV: 68.9 cm/s Common Femoral EDV: 0.0 cm/s Superficial Femoral Proximal PSV: 77.5 cm/s Proximal EDV: 0.0 cm/s Mid PSV: 67.2 cm/s Mid EDV: 0.0 cm/s Distal PSV: 86.6 cm/s Distal EDV: 5.0 cm/s Popliteal Proximal PSV: 41.3 cm/s Popliteal Proximal EDV: 0.0 cm/s Posterior Tibial Proximal PSV: 67.1 cm/s Proximal EDV: 0.0 cm/s Mid PSV: 61.9 cm/s Mid EDV: 0.0 cm/s Distal PSV: 37.4 cm/s Distal EDV: 0.0 cm/s Anterior Tibial Proximal PSV: 70.9 cm/s Proximal EDV: 5.0 cm/s Mid PSV: 68.3 cm/s Mid EDV: 0.0 cm/s Distal PSV: 58.0 cm/s Distal EDV: 2.5 cm/s US/US arterial duplex LE RT IMPRESSION: 1. Normal triphasic waveform and flow throughout the right lower extremity. 2. Mild atherosclerotic disease. 3. No pseudoaneurysm or hematoma within right groin. Electronically authenticated by: KIRSTY CLINTON Date: 01/20/2024 05:13
== END 2024-01-18 17:26 | disposition home or self-care (01) ==
PROVIDERS: PCP Internal Medicine; Visit Provider Internal Medicine
DX: I73.9 Peripheral vascular disease, unspecified (principal)
CPT/HCPCS: 93926

== ENCOUNTER 2024-02-02 13:17 | Emergency (ER) | payer MEDICARE, SELFPAY ==
[2024-02-02] VITALS (82 sets, daily range): BP systolic 84–164; BP diastolic 65–133; PULSE 66–118; TEMP 36.6; O2SAT 36–100; BMI 25.1; BMI 25.8
--- NOTE | 2024-02-02 13:19 | ECG_ITS ---
The [facility] Test Date: 2024-02-02 Pat Name: TOMMY DAUGHERTY Department: Room: - Gender: Male [employer]: : 1965 Requested By: [id number] Order Number: [id number] Reading MD: DAGOBERTO TERRY Measurements Intervals [place] Rate: 80 P: 90 PA: 148 QRS: 78 QRSD: 96 T: 74 QT: 406 QTc: 441 Interpretive Statements 1100 Sinus rhythm 4068 Nonspecific Twave abnormality 9130 borderline ECG No previous ECG available for comparison Electronically Signed On 02-03-2024 7:07:55 EDT by DAGOBERTO TERRY
--- NOTE | 2024-02-02 13:19 | CT_ITS ---
The [address] [address] Patient Name: TOMMY DAUGHERTY MRN: [id number] date: 1965 Sex: M Assigned Patient Location: ED.MAIN Current Patient Location: ER Accession/Order Number: [id number] Exam Date: 02/02/2024 18:35 Report Date: 02/02/2024 20:03 At the request of: TRENTON MOHAMUD Procedure: CT abdomen pelvis w con EXAM: CT abdomen pelvis w con HISTORY: Altered mental status COMPARISON: CT ABD AND PELVIS WITHOUT Date 09/12/2013 TECHNIQUE: Multiple axial images of the abdomen and pelvis are obtained following administration of IV contrast material. Coronal and sagittal reformatted sequences are submitted for review. FINDINGS: This is a limited examination due to streak artifact as well as breathing artifact. An approximately 2 cm irregular nodular density/nodular infiltrate is seen in the posterior right lung base. Dedicated chest CT may be considered for better evaluation. Moderate distended gallbladder is seen. No obvious calcified gallstone is seen. The visualized liver, spleen, pancreas and bilateral adrenal glands appear unremarkable. Low densities are seen about the left kidney measuring up to 4.7 cm, which can be better characterized with renal ultrasound, but which CT appearance can be seen with cystic structures. Bilateral kidneys demonstrate normal contrast enhancement. There is no evidence for hydronephrosis bilaterally. Redmond catheter is seen within the distended urinary bladder. Mild wall thickening of the urinary bladder is seen, which can be seen with mild inflammatory process. Gas is also seen in the nondependent urinary bladder, which may be related to recent prior instrumentation versus infectious process. Please correlate clinically. Nasogastric tube is seen in place with distal tip in the gastric body. Nonobstructive bowel pattern is seen. The appendix is not identified. No abnormal pericecal inflammatory changes are seen. Large volume of stool is seen in the distal colon. No significant bowel wall thickening is seen. No significant free fluid or abnormal fluid collection is seen in the abdomen and pelvis. Aortic and iliac arterial desiccation is seen without aneurysmal dilatation. The abdominal wall and visualized soft tissues appear unremarkable. Advanced degenerative changes of the right hip joint are seen with joint space narrowing as well as subchondral sclerotic and cystic changes. Mild flattening of the superior right femoral head is seen. CT/CT abdomen pelvis w con IMPRESSION: This is a limited examination due to streak artifact as well as breathing artifact. An approximately 2 cm irregular nodular density/nodular infiltrate is seen in the posterior right lung base. Dedicated chest CT may be considered for better evaluation. Redmond catheter is seen within the distended urinary bladder. Mild wall thickening of the urinary bladder is seen, which can be seen with mild inflammatory process. Gas is also seen in the nondependent urinary bladder, which may be related to recent prior instrumentation versus infectious process. Please correlate clinically. Large volume of stool seen in the distal colon. Electronically authenticated by: CLAIR BENITEZ Date: 02/02/2024 20:03
--- NOTE | 2024-02-02 13:19 | XR_ITS ---
The [address] [address] Patient Name: TOMMY DAUGHERTY MRN: [id number] date: 1965 Sex: M Assigned Patient Location: ER Current Patient Location: ED.MAIN Accession/Order Number: [id number] Exam Date: 02/02/2024 17:55 Report Date: 02/02/2024 18:49 At the request of: TRENTON MOHAMUD Procedure: XR chest 1V EXAM: XR chest 1V HISTORY: Altered mental status COMPARISON: 02/02/2024 TECHNIQUE: Chest X-ray AP, 1 view FINDINGS: Support devices: None. Lungs/pleura: No consolidation, effusion, or pneumothorax. Redemonstration of innumerable calcified granuloma throughout the lungs, likely sequela of prior infection Heart and mediastinum: Normal contours. Bones: No acute abnormality identified. XR/XR chest 1V Impression: No radiographic evidence of acute cardiopulmonary process. Electronically authenticated by: KELLY ESCUDERO Date: 02/02/2024 18:49
--- NOTE | 2024-02-02 13:20 | CT_ITS ---
The [address] [address] Patient Name: TOMMY DAUGHERTY MRN: [id number] date: 1965 Sex: M Assigned Patient Location: ED.MAIN Current Patient Location: ED.MAIN Accession/Order Number: [id number] Exam Date: 02/02/2024 18:35 Report Date: 02/02/2024 19:39 At the request of: TRENTON MOHAMUD Procedure: CT head/brain wo con EXAMINATION: CT head/brain wo con, 02/02/2024 6:35 PM EDT HISTORY: Altered mental status COMPARISON: None. TECHNIQUE: CT scan of the head was performed without IV contrast. CT dose reduction technique was used, including Automated Exposure Control. FINDINGS: BRAIN PARENCHYMA/CSF SPACES: Ventricles are normal in size for age. There is no hemorrhage, mass effect or midline shift. Mild bilateral frontal parietal atrophy. PARANASAL SINUSES: Mild bilateral ethmoid sinus mucosal thickening. SKULL BASE AND CALVARIUM: Normal. EXTRACRANIAL SOFT TISSUES: Normal. CT/CT head/brain wo con IMPRESSION: 1. No acute intracranial abnormality. 2. MRI would be more sensitive for acute infarct if clinically indicated. Electronically authenticated by: DANIEL THIBODEAUX Date: 02/02/2024 19:39
--- NOTE | 2024-02-02 13:20 | CT_ITS ---
The [address] [address] Patient Name: TOMMY DAUGHERTY MRN: [id number] date: 1965 Sex: M Assigned Patient Location: ED.MAIN Current Patient Location: ER Accession/Order Number: [id number] Exam Date: 02/02/2024 18:35 Report Date: 02/02/2024 19:44 At the request of: TRENTON MOHAMUD Procedure: CT cervical spine wo con CT CERVICAL SPINE WITHOUT IV CONTRAST. INDICATION: Altered mental status. COMPARISON: There are no prior studies available for comparison. TECHNIQUE: CT of the cervical spine without contrast. Orthogonal sagittal and coronal multiplanar reformatted images were created. . FINDINGS: BONY ALIGNMENT: There is normal cervical lordosis. No spondylolisthesis. VERTEBRAL BODY: No acute fracture of the cervical spine. Mild to moderate multilevel degenerative spondylosis. CENTRAL CANAL/NEURAL FORAMINA: There is moderate to severe C5-6 central canal stenosis secondary to disc osteophyte complex.. SOFT TISSUE: No mass or inflammation. UPPER LUNGS: No acute findings. CT/CT cervical spine wo con IMPRESSION: No acute cervical spinal fracture. Electronically authenticated by: ELENA ZAVALA Date: 02/02/2024 19:44
[2024-02-02] MEDS: LORAZEPAM 2 MG/ML VIAL 1 MG IV ×4 (13:30→16:21)
[2024-02-02] MEDS: ADACEL DIPH,PERTUSS(ACELL),TET VAC/PF 0.5 ML ADULT SYRINGE IM (13:40)
[2024-02-02 13:44] LABS: Hematocrit 43.7 % (42.0-54.0); Hemoglobin 14.8 g/dL (14.0-18.0); Mean Corpuscular HGB Conc 33.9 g/dL (29.9-35.2); Mean Corpuscular Hemoglobin 32.9 pg (25.9-34.0); Mean Corpuscular Volume 97.1 fL (80.0-94.0); Mean Platelet Volume 9.8 fL (9.5-13.5); Platelet Count 250 10^3/uL (150-450); Red Cell Distribution Width 13.1 % (11.0-15.0); White Blood Count 25.7 10^3/uL (4.0-11.0)
[2024-02-02 13:59] LABS: Anion Gap 18.1; BUN Creatinine Ratio 22.1; Calcium 9.7 mg/dL (8.5-10.1); Carbon Dioxide 28.2 mmol/L (21.0-32.0); Chloride 103 mmol/L (98-107); Estimated GFR (African America >60 (>=60); Estimated GFR (Non-African Ame >60 (>=60); Glucose 131 mg/dL (74-106); Potassium 4.3 mmol/L (3.5-5.1); Sodium 145 mmol/L (136-145)
[2024-02-02 14:02] LABS: Ethanol <3 mg/dL
[2024-02-02 14:05] LABS: Acetaminophen <2.0 ug/mL (10.0-30.0)
[2024-02-02 14:06] LABS: Band Neutrophils Absolute 0.8 10^3/uL (0.0-0.3); Lymphocytes Absolute Manual 1.02 10^3/uL (1.20-3.80); Monocytes Absolute Manual 1.02 10^3/uL (0.30-0.80); Segmented Neut Absolute Manual 22.87 10^3/uL (1.4-6.5)
[2024-02-02] MEDS: 0.9 % SODIUM CHLORIDE 1,000 ML 1000 ML IV (14:08)
[2024-02-02 14:13] LABS: Alanine Aminotransferase 27 U/L (16-63); Albumin Globulin Ratio 1.1; Albumin Level 3.8 g/dL (3.4-5.0); Alkaline Phosphatase 106 U/L (46-116); Aspartate Amino Transferase 41 U/L (15-37); Bilirubin Direct 0.3 mg/dL (0.0-0.2); Bilirubin Total 1.4 mg/dL (0.2-1.0); Globulin 3.6 g/dL; Total Protein 7.4 g/dL (6.4-8.2); Troponin I High Sensitivity 9.6 pg/mL (4.0-76.1)
[2024-02-02 14:15] LABS: Lactate/Lactic Acid 4.9 mmol/L (0.4-2.0)
[2024-02-02 14:20] LABS: Bilirubin Urine SMALL (NEGATIVE); Blood Urine MODERATE (NEGATIVE); Clarity Urine CLEAR (CLEAR); Color Urine DK. YELLOW (YELLOW); Glucose Urine UA NEGATIVE (NEGATIVE); Ketones Urine 15 mg/dL (NEGATIVE); Leukocyte Esterase Urine NEGATIVE (NEGATIVE); Nitrite Urine NEGATIVE (NEGATIVE); Protein Urine 100 mg/dL (NEG/TRACE); Specific Gravity Urine >=1.030 (1.005-1.025)
[2024-02-02 14:35] LABS: Amphetamine Screen Urine NEGATIVE (NEGATIVE); Barbiturates Screen Urine NEGATIVE (NEGATIVE); Benzodiazepines Screen Urine POSITIVE (NEGATIVE); Buprenorphine Screen Urine NEGATIVE (NEGATIVE); Cannabinoid Screen Urine POSITIVE (NEGATIVE); Cocaine Screen Urine POSITIVE (NEGATIVE); Methadone Screen Urine NEGATIVE (NEGATIVE); Methamphetamines Screen Urine NEGATIVE (NEGATIVE); Opiate Screen Urine NEGATIVE (NEGATIVE); Oxycodone Screen Urine NEGATIVE (NEGATIVE); Phencyclidine Screen Urine NEGATIVE (NEGATIVE); Tricyclic Antidepressant Urine POSITIVE (NEGATIVE)
[2024-02-02 14:37] LABS: Creatine Kinase 471 U/L (39-308)
[2024-02-02 14:37] LABS: Bacteria Urine TRACE #/HPF (NONE SEEN); Cast Seen? SEEN #/LPF (NONE SEEN); Hyaline Casts Urine FEW; Mucus Urine TRACE (NONE SEEN)
[2024-02-02 14:38] LABS: Crystals Seen? None Seen #/HPF (None Seen); Squamous Epithelial Cell Urine RARE #/LPF (NONE/RARE)
[2024-02-02] MEDS: HALOPERIDOL LACTATE 5 MG/ML VIAL IV (16:25)
[2024-02-02] MEDS: DEXMEDETOMIDINE HCL 200 MCG in 0.9 % SODIUM CHLORIDE 50 ML 4.24600000000000044 MCG IV (17:10)
[2024-02-02 17:16] LABS: Lactate/Lactic Acid 2.6 mmol/L (0.4-2.0)
[2024-02-02] MEDS: ETOMIDATE 20 MG/10 ML VIAL IVP (18:02)
[2024-02-02] MEDS: LORAZEPAM 2 MG/ML VIAL IV ×2 (18:06→21:33)
--- NOTE | 2024-02-02 18:06 | XR_ITS ---
The [address] [address] Patient Name: TOMMY DAUGHERTY MRN: [id number] date: 1965 Sex: M Assigned Patient Location: ER Current Patient Location: ER Accession/Order Number: [id number] Exam Date: 02/02/2024 18:10 Report Date: 02/02/2024 19:03 At the request of: ASHLEIGH SORENSEN Procedure: XR chest 1V EXAM: XR chest 1V HISTORY: post intubation COMPARISON: 02/02/2024 TECHNIQUE: Chest X-ray AP, 1 view FINDINGS: Support devices: Distal tip of the endotracheal tube is noted 4.5 cm above the nasir. Distal tip of the nasogastric tube is beyond the confines of the image. Lungs/pleura: No consolidation, effusion, or pneumothorax.Redemonstration of innumerable calcified granuloma throughout the lungs, likely sequela of prior infection Heart and mediastinum: Normal contours. Bones: No acute abnormality identified. XR/XR chest 1V Impression: Distal tip of the endotracheal tube is noted 4.5 cm above the nasir. Distal tip of the nasogastric tube is beyond the confines of the image. Electronically authenticated by: KELLY ESCUDERO Date: 02/02/2024 19:03
--- NOTE | 2024-02-02 18:13 | PC.NURSE ---
Addendum entered by Zhane Anderson RN 02/02/24 18:15: @1812 chest x ray completed to confirm placement. Original Note: @1804 patient intubated. 26 @ marelys, 7.0 ET cuffed tube. @1808 Connected to ventilator. Patient suctioned with cream colored mucus, thick and frothy
[2024-02-02] MEDS: PROPOFOL 1,000 MG/100 ML VIAL 2.44899999999999984 MG IV (18:18)
--- NOTE | 2024-02-02 18:21 | ED.AMS1 ---
HPI - Altered Mental Status General Chief Complaint: Altered Mental Status Stated Complaint: AGITATION Time Seen by Provider: 02/02/24 13:18 Source comment: EMS Mode of arrival: ambulance Limitations: altered mental status History of Present Illness HPI narrative: 58-year-old male presents to the emergency department for altered mental status by paramedics. The patient is unable to provide any history. Paramedics report that neighbors heard a great deal of noise and authorities were summoned. When the paramedics arrived they found him to be quite agitated and they gave him first IM ketamine followed by IV ketamine and they transferred him here. The apartment where he is living was noted to be in great disarray. He had reportedly been running into baez. Objects were strewn around his apartment as well. Review of his EHR indicates that he has a history of alcohol abuse and PCP reports history of substance abuse. No further history is obtainable. Related Data Home Medications ?Medication ?Instructions ?Recorded ?Confirmed alprazolam 1 mg tablet 1 mg PO DAILY PRN anxiety 03/30/23 03/30/23 baclofen 20 mg tablet 20 mg PO TID 03/30/23 03/30/23 fexofenadine 180 mg tablet 180 mg PO DAILY 03/30/23 03/30/23 (Carleen Allergy) pregabalin 75 mg capsule (Lyrica) 75 mg PO Q12H 03/30/23 03/30/23 quetiapine 100 mg tablet 100 mg PO .QHS 03/30/23 03/30/23 tramadol 50 mg tablet 50 mg PO BID PRN pain 03/30/23 03/30/23 Allergies Allergy/AdvReac Type Severity Reaction Status Date / Time No Known Drug Allergies Allergy Verified 03/30/23 10:35 Review of Systems ROS Narrative Not obtainable, altered mental status Exam Narrative Exam Narrative: Nurses note and vital signs reviewed and patient is not hypoxic. General: The patient is quite disheveled. Extremities are dirty and he has multiple abrasions particularly on his toes and his lower extremities. He is unkempt. Skin: Warm, dry, no pallor noted. Bruises and abrasions are noted primarily to his extremities and in particular the lower extremity Head: Normocephalic, bruises present on his face Eye: Normal conjunctiva, no drainage, EOMI. PERRL Ears, Nose, Mouth, and Throat: oral mucosa is moist. Nares patent. Cardiovascular: Regular Rate and Rhythm, not tachycardic Respiratory: Patient is in no distress, no accessory muscle use, lungs are clear to auscultation, no wheezing, rales or rhonchi, breath sounds are equal Back: non-tender to palpation GI: Soft and Musculoskeletal: He moves all of his joints in his extremities well. No obvious deformity Neurological: Upon arrival he is sedated and is repeating and expletive. He does not follow commands Psychiatric: Cannot be tested Constitutional Vital Signs, click to edit/add: Last Vital Signs Temp 98 F 02/02/24 14:37 Pulse 85 02/02/24 18:10 Resp 20 02/02/24 16:00 BP 117/73 02/02/24 18:16 Pulse Ox 98 02/02/24 18:10 O2 Del Method Room Air 02/02/24 15:44 O2 Flow Rate 6 02/02/24 14:37 Course Vital Signs Vital signs: Vital Signs Pulse Rate 118 H 02/02/24 13:24 Respiratory Rate 18 02/02/24 13:24 Pulse Oximetry 90 L 02/02/24 13:24 Temperature 98 F 02/02/24 14:37 Pulse Rate 85 02/02/24 18:10 Respiratory Rate 20 02/02/24 16:00 Blood Pressure 117/73 02/02/24 18:16 Pulse Oximetry 98 02/02/24 18:10 Oxygen Delivery Method Room Air 02/02/24 15:44 Oxygen Delivery Flow Rate 6 02/02/24 14:37 MDM - Altered Mental Status MDM Narrative Medical decision making narrative: The patient presents with altered mental status. Gradually as he was in the emergency department he became more lucid and eventually was able to answer questions moderately appropriately. We made multiple attempts at doing the CAT scans with IV sedation but these were not successful. When we got him into the CAT scan room he became agitated and it was necessary to return him to the emergency department several times without performing the scans. Precedex drip was ordered and he was transported again to CT suite. At this point he became more somnolent and his O2 saturation dropped. He was sat upright and placed on facemask oxygen and his O2 sat came up appropriately. He was brought back to the emergency department and the decision to intubate was made by me to protect his airway. The patient was given IV etomidate and was orotracheally intubated without difficulty on the first attempt with visualization of the tube passing between the cords and bilateral breath sounds and appropriate change on the capnometer. Postintubation x-ray shows appropriate tube placement. The patient is being returned to CT for scans. The patient has elevated WBC and the cause is uncertain. It does not seem to be a focus of infection and I do not suspect meningitis in this patient. Blood cultures were obtained. He did not have a cough or apparent shortness of breath and I do not suspect COVID or influenza. He has a history of alcohol abuse and the possibility of alcohol withdrawal was entertained. He will be admitted to the ICU. Case discussed with Dr. Choudhury. Case also discussed with Dr. Car. CT scan reports are pending and the patient is signed out to Dr. Hua at change of shift Differential Diagnosis Differential diagnosis: Likely alcoholic intoxication, altered mental status, delirium, hypoglycemia, hyponatremia, subarachnoid hemorrhage and OTHER (Alcohol withdrawal, subdural hematoma) Lab Data Attestation: I reviewed the patient's lab results. Labs: Lab Results 02/02/24 02/02/24 02/02/24 Range/Units 13:30 14:06 16:40 WBC 25.7 H (4.0-11.0) 10^3/uL RBC 4.50 L (4.70-6.10) 10^6/uL Hgb 14.8 (14.0-18.0) g/dL Hct 43.7 (42.0-54.0) % MCV 97.1 H (80.0-94.0) fL MCH 32.9 (25.9-34.0) pg MCHC 33.9 (29.9-35.2) g/dL RDW 13.1 (11.0-15.0) % Plt Count 250 (150-450) 10^3/uL MPV 9.8 (9.5-13.5) fL Seg Neuts % (Manual) 89.0 Band Neutrophils % 3.0 (0-5) % Lymphocytes % (Manual) 4.0 L (20.5-60.0) % Monocytes % (Manual) 4.0 (1.7-12.0) % Eosinophils % (Manual) 0.0 L (0.9-7.0) % Basophils % (Manual) 0.0 L (0.2-2.0) % Neutrophils # (Manual) 22.87 H (1.4-6.5) 10^3/uL Band Neutrophils # 0.8 H (0.0-0.3) 10^3/uL Lymphocytes # (Manual) 1.02 L (1.20-3.80) 10^3/uL Monocytes # (Manual) 1.02 H (0.30-0.80) 10^3/uL Eosinophils # (Manual) 0.00 (0.00-0.70) 10^3/uL Basophils # (Manual) 0.00 (0.00-0.10) 10^3/uL Sodium 145 (136-145) mmol/L Potassium 4.3 (3.5-5.1) mmol/L Chloride 103 (98-107) mmol/L Carbon Dioxide 28.2 (21.0-32.0) mmol/L Anion Gap 18.1 BUN 23.0 H (7.0-18.0) mg/dL Creatinine 1.04 (0.70-1.30) mg/dL Est GFR ( Amer) >60 (>=60) Est GFR (Non-Af Amer) >60 (>=60) BUN/Creatinine Ratio 22.1 Glucose 131 H (74-106) mg/dL Lactate 4.9 H* 2.6 H* (0.4-2.0) mmol/L Calcium 9.7 (8.5-10.1) mg/dL Total Bilirubin 1.4 H (0.2-1.0) mg/dL Direct Bilirubin 0.3 H (0.0-0.2) mg/dL AST 41 H (15-37) U/L ALT 27 (16-63) U/L Alkaline Phosphatase 106 (46-116) U/L Total Creatine Kinase 471 H* (39-308) U/L Troponin I High Sens 9.6 (4.0-76.1) pg/mL Total Protein 7.4 (6.4-8.2) g/dL Albumin 3.8 (3.4-5.0) g/dL Globulin 3.6 g/dL Albumin/Globulin Ratio 1.1 Urine Color Dk. yellow (YELLOW) Urine Clarity Clear (CLEAR) Urine pH 6.0 (5.0-9.0) Ur Specific [place] >=1.030 A (1.005-1.025) Urine Protein 100 A (NEG/TRACE) mg/dL Urine Glucose (UA) Negative (NEGATIVE) mg/dL Urine Ketones 15 A (NEGATIVE) mg/dL Urine Occult Blood Moderate A (NEGATIVE) Urine Nitrite Negative (NEGATIVE) Urine Bilirubin Small A (NEGATIVE) Urine Urobilinogen 1.0 (0.2-1.0) EU/dL Ur Leukocyte Esterase Negative (NEGATIVE) Urine RBC 2-5 A (0-2) #/HPF Urine WBC 2-5 A (NONE SEEN) #/HPF Ur Squamous Epith Cells Rare (NONE/RARE) #/LPF Urine Crystals None seen (None Seen) #/HPF Urine Bacteria Trace A (NONE SEEN) #/HPF Urine Casts Seen A (NONE SEEN) #/LPF Hyaline Casts Few Urine Mucus Trace A (NONE SEEN) Salicylates 3.0 (<=19.9) mg/dL Urine Opiates Screen Negative (NEGATIVE) Ur Buprenorphine Scrn Negative (NEGATIVE) Ur Oxycodone Screen Negative (NEGATIVE) Urine Methadone Screen Negative (NEGATIVE) Acetaminophen <2.0 L (10.0-30.0) ug/mL Ur Barbiturates Screen Negative (NEGATIVE) U Tricyclic Antidepress Positive A (NEGATIVE) Ur Phencyclidine Scrn Negative (NEGATIVE) Ur Amphetamines Screen Negative (NEGATIVE) U Methamphetamines Scrn Negative (NEGATIVE) U Benzodiazepines Scrn Positive A (NEGATIVE) Urine Cocaine Screen Positive A (NEGATIVE) U Cannabinoids Screen Positive A (NEGATIVE) Ethanol Quant <3 mg/dL ECG Data Attestation: I personally reviewed and interpreted this ECG as follows: (EKG on my interpretation shows sinus rhythm without acute change and a rate of 80) Critical Care Time Critical Care Time Critical Care Time: Yes Total Critical Care Time: 130 Attestation: Due to the high probability of sudden and clinically significant deterioration in the patient's condition he/she required the highest level of my preparedness to intervene urgently I provided critical care time including documentation time, medication orders and management, reevaluation, vital sign assessment, ordering and reviewing of lab tests, ordering and reviewing of x-ray studies, and admission orders. Aggregate critical care time is 130 minutes including only time during which I was engaged in work directly related to his/her care and did not include time spent treating other patients simultaneously. Discharge Plan Discharge Chief Complaint: Altered Mental Status Clinical Impression: Altered mental status, Polysubstance abuse Patient Disposition: Admitted As Inpatient Time of Disposition Decision: 18:49 Condition: Fair Prescriptions / Home Meds: No Action alprazolam 1 mg tablet 1 mg PO DAILY PRN (Reason: anxiety) baclofen 20 mg tablet 20 mg PO TID quetiapine 100 mg tablet 100 mg PO .QHS tramadol 50 mg tablet 50 mg PO BID PRN (Reason: pain) fexofenadine [Carleen Allergy] 180 mg tablet 180 mg PO DAILY pregabalin [Lyrica] 75 mg capsule 75 mg PO Q12H Print Language: Croatian Referrals: Shaikh Choudhury MD [Primary Care Provider] - 1 week
[2024-02-02] MEDS: 0.9 % SODIUM CHLORIDE 1,000 ML 999 ML IV (20:41)
[2024-02-03] VITALS: O2SAT 98
[2024-02-03] MEDS: LORAZEPAM 2 MG/ML VIAL IV (00:14)
== END 2024-02-03 00:41 | disposition short-term general hospital (02) ==
PROVIDERS: Emergency Medicine; Emergency Provider Internal Medicine; PCP Internal Medicine
DX: R41.82 Altered mental status, unspecified (principal); R45.1 Restlessness and agitation; F19.10 Other psychoactive substance abuse, uncomplicated; F10.10 Alcohol abuse, uncomplicated; Y90.0 Blood alcohol level of less than 20 mg/100 ml; Z23 Encounter for immunization; S90.416A Abrasion, unspecified lesser toe(s), initial encounter; X58.XXXA Exposure to other specified factors, initial encounter; S80.819A Abrasion, unspecified lower leg, initial encounter
CPT/HCPCS: 31500; 31720; 36415; 51702; 70450; 71045; 72125; 74177; 80048; 80053; 80076; 80179; 80307; 80320; 80329; 81001; 82550; 83605; 84484; 85007; 85027; 87040; 90471; 90715; 93005; 94002; 96361; 96365; 96366; 96375; 96376; 99291; 99292; Q9967